=== PATIENT | female | born 1980 | race Caucasian/White ===

== ENCOUNTER → 2016-03-02 | Outpatient (CLI) | payer OTHER, MEDICAID ==
[~2016-03-02] MED LIST: ADDE10CA PO; ADDE30CA PO; AMBI10TA PO; ASPI1TAB PO; BUPIVACAINE HCL 0.25% 30 ML VIAL As Ordered ONE; DETR1TAB4 PO; EFFE150C PO; FERR325T3 PO; IBUP80TA PO; IMIT100T PO; ISOVUE-M 300 61% 15ML VIAL (Q9967) As Ordered ONE; LIDOCAINE 1% SDV INJ 30 ML VIAL As Ordered ONE; LYRI75CA PO; MIRT1TAB3 PO; PATA0.2S OP; PREV30CA11 PO; PROA1AER IN; REQU0.5T PO; SPIR1CAP INH; SYMB80INH INH; SYSTSOL5 OP; TAMO20TA4 PO; TRIAMCINOLONE ACETONIDE SUSP 40 MG/ML VIAL (J3301) As Ordered ONE; VITA2000 PO; WOMETAB9 PO; XANA0.5T PO; [UNRECOGNIZED DRUG - CODE] OP; diazePAM 5 MG TAB As Ordered ONE; oxyCODONE 5MG TAB As Ordered ONE
--- NOTE | 2016-03-02 17:20 | REP ---
FLUOROSCOPIC GUIDANCE: The images were reviewed with Dr. Decker. The patient has a history of back pain. The portable C-ARM was provided in the OR by Dr. Fuentes for fluoroscopic guidance. 2 intraoperative fluoroscopic spot films were obtained for needle placement verification for left SI joint injection. The films are on the PACS system and are available for review. 11 seconds of fluoroscopic time was utilized for this procedure. Reviewed by MINERVA Santiago 03/03/2016 09:05 AEdited and Signed by Maximiliano Decker MD 03/03/2016 03:17 P
--- NOTE | 2016-03-07 00:24 | ECWPNPC ---
PATIENT NAME: JEANNE HURLEY : 1980 GENDER: FEMALE VISIT DATE: 03/02/2016 DISCHARGE DATE: 03/02/16 1248 VISIT LOCKED DATE TIME: PHYSICIAN: ELVIA HARRIS RESOURCE: ELVIA HARRIS REASON FOR APPOINTMENT 1. HIP INJECTION HISTORY OF PRESENT ILLNESS HISTORY OF PRESENT ILLNESS: PAIN THE PATIENT DESCRIBES THE PAIN... FALL RISK SCREENING: SCREENING :NO FALLS IN THE PAST YEAR CURRENT MEDICATIONS TAKING XANAX 0.5 MG TABLET 1 TABLET ORALLY BID, NOTES: 03/02 7AM TAKING PROAIR HFA 108 (90 BASE) MCG/ACT AEROSOL SOLUTION 2 PUFFS NEEDED INHALATION QID PRN, NOTES: M TAKING SYMBICORT 80-4.5 MCG/ACT AEROSOL 2 PUFFS INHALATION TWICE A DAY, NOTES: 03/02 7AM TAKING ASPIR-81 81 MG TABLET DELAYED RELEASE 1 TABLET ORALLY ONCE A DAY, NOTES: 03/02 7AM TAKING FERROUS SULFATE 325 (65 FE) MG TABLET 1 TABLET ORALLY ONCE A DAY, NOTES: 2 DAYS AGO TAKING IBUPROFEN 800 MG TABLET 1 TABLET ORALLY THREE TIMES A DAY, NOTES: 03/02 7AM TAKING PREVACID 30 MG CAPSULE DELAYED RELEASE 1 CAPSULE ORALLY BID, NOTES: 2 DAYS AGO TAKING REQUIP 0.5 MG TABLET 1 TABLET 1 TO 3 HOURS BEFORE BEDTIME ORALLY ONCE A DAY, NOTES: 5 DAYS AGO TAKING IMITREX 100 MG TABLET 1 TABLET NEEDED ONE TIME ORALLY ONCE A DAY, NOTES: 2 WEEKS AGO TAKING SYSTANE ULTRA 0.4-0.3 % SOLUTION 1 DROP INTO AFFECTED EYE NEEDED OPHTHALMIC 24 TIME(S) A DAY, NOTES: NONE SINCE SEPTEMBER TAKING TAMOXIFEN CITRATE 20 MG TABLET 1 TABLET ORALLY ONCE A DAY, NOTES: 03/02 7A TAKING EFFEXOR XR 150 MG CAPSULE EXTENDED RELEASE 24 HOUR 1 CAPSULE WITH FOOD ORALLY ONCE A DAY, NOTES: 03/02 7A TAKING WOMENS DAILY FORMULA TABLET 1 TAB(S) ORALLY DAILY, NOTES: 03/02 7AM TAKING KETOTIFEN FUMARATE 0.025 % SOLUTION 1 DROP OPHTHALMIC BID, NOTES: NONE SINCE SEPTEMBER TAKING BONIVA 150 MG TABLET ORALLY MONTHLY, NOTES: 2 MONTHS AGO TAKING SINGULAIR 10 MG TABLET ORALLY ONCE DAILY, NOTES: 03/02 7AM TAKING VESICARE 5 MG TABLET ORALLY ONCE DAILY, NOTES: 03/02 7AM TAKING VITAMIN D 2000 UNIT TABLET ORALLY ONCE DAILY, NOTES: 1 WEEK AGP TAKING VENTOLIN HFA 18GM AEROSOL SOLUTION 2 PUFFS NEEDED INHALATION Q6HPRN, NOTES: 03/02 7AM TAKING HYDROXYCHLOROQUINE SULFATE , NOTES: 03/02 7AM TAKING HYDROXYZINE HCL 50 MG TABLET ORALLY Q6HPRN, NOTES: 03/02 7AM TAKING ALBUTEROL SULFATE (2.5 MG/3ML) 0.083% NEBULIZATION SOLUTION INHALATION Q6HPRN, NOTES: 2 DAYS TAKING ROPINIROLE HCL 2 MG TABLET ORALLY , NOTES: 03/01 7PM TAKING LYRICA 200 MG CAPSULE 1 CAPSULE ORALLY TWICE A DAY MDD2, NOTES: 03/02 7AM NOT-TAKING NICOTINE STEP 1 21 MG/24HR PATCH 24 HOUR TRANSDERMAL ONCE DAILY NOT-TAKING ABILIFY 2 MG TABLET ORALLY ONCE DAILY, NOTES: 10/16/15 0800 NOT-TAKING VALIUM 10 MG TABLET 1 ORALLY 1 TAB 1 HR PRE PROCEDURE MDD1, NOTES: HAS NOT HAD SINCE LAST PROCEDURE NOT-TAKING ADDERALL XR 10 MG CAPSULE EXTENDED RELEASE 24 HOUR 1 CAPSULE IN THE MORNING ORALLY ONCE A DAY NOT-TAKING ADDERALL XR 30 MG CAPSULE EXTENDED RELEASE 24 HOUR ORALLY NOT-TAKING CHOLECALCIFEROL 2000 UNIT CAPSULE ORALLY DAILY NOT-TAKING ZYRTEC ITCHY EYE 0.025 % SOLUTION 1 DROP INTO AFFECTED EYE OPHTHALMIC TWICE A DAY NOT-TAKING MIRTAZAPINE 15 MG TABLET 1 TABLET BEFORE BEDTIME IN THE EVENING ORALLY ONCE A DAY NOT-TAKING PATADAY 0.2 % SOLUTION 1 DROP INTO AFFECTED EYE OPHTHALMIC BID NOT-TAKING DETROL 2 MG TABLET 1 TABLET ORALLY TWICE A DAY NOT-TAKING AMBIEN 10 MG TABLET 1 TABLET AT BEDTIME NEEDED ORALLY ONCE A DAY, NOTES: STOPPED TAKING MEDICATION LIST REVIEWED AND RECONCILED WITH THE PATIENT PAST MEDICAL HISTORY FIBROMYALGIA SCOLIOSIS ARTHRITIS DEGENERATIVE DISC DISEASE ANEMIA THALSEMIA CARPAL TUNNEL ADHD ANXIETY DEPRESSION INSOMNIA OVERACTIVE BLADDER BREAST CA CERVICAL CA CARDIAC DISEASE RESTLESS LEG COPD ASTHMA ALLERGIES WELLBUTRIN: HIVES: ALLERGY CARVEDILOL: CONFUSION: ALLERGY SOCIAL HISTORY TOBACCO USE ARE YOU A:NONSMOKER LEARNING BARRIERS / SPECIAL NEEDS ORIENTED TO PLAN OF CARE: PATIENT, PAIN MANAGEMENT PATIENT, ORIENTED TO PLAN OF CARE: PATIENT, PAIN MANAGEMENT PATIENT. NEW PATIENT PAIN DIARY TODAY'S VISITNOTES FROM 0-10, WHAT LEVEL IS YOUR PAIN TODAY?0 PAIN CLINIC PFS, CLERGY, PUBLIC HEALTH REFERRALS PFS REFERRAL NEEDED?NO CLERGY REFERRAL NEEDED?NO PUBLIC HEALTH REFERRAL NEEDED?NO WAS THE PROVIDER NOTIFIED OF ANY PERTINENT INFO?NO PFS REFERRAL NEEDED?NO CLERGY REFERRAL NEEDED?NO PUBLIC HEALTH REFERRAL NEEDED?NO WAS THE PROVIDER NOTIFIED OF ANY PERTINENT INFO?NO REVIEW OF SYSTEMS CONSTITUTIONAL: ANY CHANGE IN YOUR MEDICAL CONDITION? NO . CHILLS NO . FEVER NO . INFECTION: DO YOU HAVE NEW INFECTIONS? NO . DO YOU HAVE HISTORY OF MRSA? NO . MUSCULOSKELETAL: ANY NEW PATTERNS OF PAIN OR NUMBNESS? NO . GASTROENTEROLOGY: ANY NEW CHANGE IN BOWEL CONTROL? NO . GENITOURINARY: ANY NEW CHANGE IN BLADDER CONTROL? NO . IS THERE A CHANCE YOU COULD BE ? NO . HEMATOLOGY/LYMPH: DO YOU TAKE ANY BLOOD THINNERS? (FOR EXAMPLE- COUMADIN, PLAVIX, AGGRENOX, PLATEL, PRADAXA, OR XARELTO) NO . WHEN WAS YOUR LAST DOSE? DATE: TIME: . NEUROLOGY: HAVE YOU FALLEN IN THE PAST 6 MONTHS? YES, PT STATES THAT SHE FELL AT HOME, OUTSIDE, SLIPPED ON ICE, NO REPORT TO ED, NO INJURY NOTED . ANY NEW EXTREMITY NUMBNESS OR WEAKNESS? NO . CARDIOLOGY: DO YOU HAVE A PACEMAKER OR DEFIBRILLATOR? NO . RESPIRATORY: HAVE YOU BEEN SICK IN THE PAST WEEK? NO . FEVER NO . FLU LIKE SYMPTOMS? NO . COUGH NO . INTEGUMENTARY: DO YOU HAVE ANY RASHES OR OPEN SORES? NO . ALLERGIC/IMMUNO: ARE YOU ALLERGIC TO SHELLFISH OR IV DYE? NO . ANY NEW ALLERGIES? NO . PSYCHIATRIC: DO YOU HAVE THOUGHTS OF HURTING YOURSELF OR SOMEONE ELSE? NO . ARE YOU ABUSED, NEGLECTED, OR IN AN UNSAFE ENVIRONMENT? NO . ENDOCRINOLOGY: ARE YOU DIABETIC? NO . OTHER: DO YOU NEED ANY PRESCRIPTIONS? NO . IF YES, PLEASE LIST: ____ . ANY NEW PROBLEMS WITH YOUR MEDICATIONS? NO . WHEN DID YOU LAST EAT? 12/30 11PM . WHEN DID YOU LAST DRINK? 12/31 7AM . WHAT DID YOU LAST DRINK? WATER . NAME OF PERSON DRIVING YOU HOME? BONIFACIO KNOTT . DO YOU HAVE ANY OTHER QUESTIONS OR CONCERNS PT STATES THAT SHE IS A CURRENT SMOKER AND ATTEMPTING TO QUIT, REFUSES ANY SMOKING CESSATION COUSELING AT THIS TIME. PT STATES THAT SHE HAD FLU SHOT IN NOVEMBER. . REVIEWED BY: PROVIDER: . VITAL SIGNS WT 199 LBS, HT 68 IN, BMI 30.25 INDEX, BP 131/58 MM HG, HR 103 /MIN, RR 16 /MIN, TEMP 96.0 F, OXYGEN SAT % 96, SAFE IN ENV? (Y/N) Y, NA INITIALS TL 1045, REVIEWED BY: KEVIN. ASSESSMENTS SACROILIITIS, NOT ELSEWHERE CLASSIFIED - M46.1 (PRIMARY) PROCEDURES PN SI PRE PROCEDURE DIAGNOSIS SACROILIITIS, SACROILIAC JOINT DYSFUNCTION POST PROCEDURE DIAGNOSIS SACROILIITIS, SACROILIAC JOINT DYSFUNCTION PROCEDURE LEFT SACROILIAC JOINT BLOCK SURGEON DR. ELVIA HARRIS CLASSIFICATION OFFICER NONE ANESTHESIA LOCAL PRE PROCEDURE NOTE PATIENT WITH HISTORY OF CHRONIC LOW BACK PAIN. I EVALUATED THE PATIENT AND REVIEWED THE CHART. I WENT OVER THE RISKS, ALTERNATIVES, AND BENEFITS ASSOCIATED WITH THIS PROCEDURE. THE PATIENT WOULD LIKE TO PROCEED AND GAVE CONSENT TO PERFORM THE PROCEDURE. THE PATIENT DENIES UNEXPLAINABLE WEIGHT LOSS, FEVER, CHILLS, OR NEW CHANGES IN URINARY OR BOWEL CONTROL DESCRIPTION OF PROCEDURE THE PATIENT WAS BROUGHT TO THE PROCEDURE ROOM AND PLACED IN THE PRONE POSITION. THE LUMBOSACRAL AREA WAS CLEANED WITH CHLORAPREP SOLUTION AND DRAPED ASEPTICALLY. THE PROCEDURE WAS DONE UNDER STERILE CONDITIONS. I CHECKED LATERALITY AND THE LEVEL WHERE THE PROCEDURE WAS GOING TO BE PERFORMED WITH THE PATIENT AND THE SUPPORTING STAFF AT THE MOMENT OF THE TIME OUT IN THE PROCEDURE ROOM. UNDER FLUOROSCOPIC GUIDANCE, TARGET POINT WAS SELECTED AT THE LOWER BORDER OF THE LEFT SACROILIAC JOINT. TARGET POINT WAS SELECTED AFTER MEDIAL ROTATION AND TILT OF THE MAGNIFIER OF THE C-ARM. LIDOCAINE WAS USED TO NUMB THE SKIN AND SUBCUTANEOUS TISSUE BELOW IT. A SPINAL NEEDLE, 22-GAUGE, WAS ADVANCED UNDER FLUOROSCOPIC GUIDANCE AND FOLLOWING PATIENT FEEDBACK UNTIL THE TARGET AREA WAS TOUCHED. THE POSITION OF THE NEEDLE WAS VERIFIED WITH AP AND LATERAL VIEWS. AFTER PROPER POSITION OF THE NEEDLE WAS ACHIEVED, ISOVUE M DYE 30%, 0.25 ML, WAS INJECTED SHOWING SPREAD OF THE DYE. THEN, A SOLUTION OF 20 MG OF KENALOG WAS INJECTED IN RIGHT JOINT WITH 3 ML OF BUPIVACAINE 0.125%. THERE WAS NO EVIDENCE OF BLOOD, PARESTHESIA OR CEREBROSPINAL FLUID DURING THE PROCEDURE. THE PATIENT WAS SENT TO THE RECOVERY ROOM. THE PATIENT WAS MOVING THE EXTREMITIES AND DOING WELL. THERE WAS NO COMPLICATION DURING THE PROCEDURE. FLUOROSCOPY TIME WAS 11 SECONDS POST PROCEDURE NOTE THE PATIENT WILL BE SEEN IN A FOLLOW UP IN THE NEXT FEW WEEKS. INSTRUCTIONS WERE GIVEN, QUESTIONS WERE ANSWERED, AND THE PATIENT EXPRESSED UNDERSTANDING AND AGREED WITH THE PLAN. I, RELL FAGAN, DOCUMENTED THE ABOVE INFORMATION ACTING A SCRIBE FOR DR. HARRIS. I, DR. HARRIS, HAVE REVIEWED THE ABOVE DOCUMENT, SCRIBED BY RELL FAGAN, AND I VERIFY THAT IT IS [facility] FLUORO GUIDANCE (PAIN)[id number] PROCEDURE CODES 69512 INJECT SACROILIAC JOINT 6045F RADXPS IN END [id number] PXD FOLLOW UP 3 WEEKS ELECTRONICALLY SIGNED BY ELVIA HARRIS MD ON 03/06/2016 AT 11:39 PM EST DISCLAIMER : THIS IS A VISIT SUMMARY EXTRACTED FROM THE [employer] CHART. IT IS NOT A COPY OF THE [employer] PROGRESS NOTE. MTDD
== END ==
LOC: M PAIN 10:50
PROVIDERS: ATTEND Anesthesiology
DX: M46.1 Sacroiliitis, not elsewhere classified (principal); M54.5 Low back pain; Z79.82 Long term (current) use of aspirin; Z79.899 Other long term (current) drug therapy; Z88.8 Allergy status to other drugs, medicaments and biological substances

== ENCOUNTER → 2016-03-22 | Outpatient (CLI) | payer OTHER, MEDICAID ==
[~2016-03-22] MED LIST changes: -BUPIVACAINE HCL 0.25% 30 ML VIAL As Ordered ONE; -ISOVUE-M 300 61% 15ML VIAL (Q9967) As Ordered ONE; -LIDOCAINE 1% SDV INJ 30 ML VIAL As Ordered ONE; +SYSTSOL11 OP; -SYSTSOL5 OP; -TRIAMCINOLONE ACETONIDE SUSP 40 MG/ML VIAL (J3301) As Ordered ONE; -diazePAM 5 MG TAB As Ordered ONE; -oxyCODONE 5MG TAB As Ordered ONE
--- NOTE | 2016-03-25 00:19 | ECWPNPC ---
PATIENT NAME: JEANNE HURLEY : 1980 GENDER: FEMALE VISIT DATE: 03/22/2016 DISCHARGE DATE: 03/22/16 1604 VISIT LOCKED DATE TIME: PHYSICIAN: YENIFER COLIN RESOURCE: YENIFER COLIN REASON FOR APPOINTMENT 1. BACK/HIPS HISTORY OF PRESENT ILLNESS HISTORY OF PRESENT ILLNESS: HERE FOR POST PROC. F/U.HAD LEFT SIJ ON 03-02-16.REPORTS ONLY 2 DAY IMPROVEMENT IN PAIN THEN PAIN HAS RETURNED TO BASELINE.RATING PAIN VAS 6/10.PAIN IS WORSE IN MID TO LOW BACK.PAIN IS AGGREVATED BY PROLONGED SITTING OR STANDING. PAIN THE PATIENT DESCRIBES THE PAIN... FALL RISK SCREENING: SCREENING :NO FALLS IN THE PAST YEAR CURRENT MEDICATIONS TAKING XANAX 0.5 MG TABLET 1 TABLET ORALLY BID, NOTES: 03/02 7AM TAKING PROAIR HFA 108 (90 BASE) MCG/ACT AEROSOL SOLUTION 2 PUFFS NEEDED INHALATION QID PRN, NOTES: 7AM TAKING SYMBICORT 80-4.5 MCG/ACT AEROSOL 2 PUFFS INHALATION TWICE A DAY, NOTES: 03/02 7AM TAKING ASPIR-81 81 MG TABLET DELAYED RELEASE 1 TABLET ORALLY ONCE A DAY, NOTES: 03/02 7AM TAKING FERROUS SULFATE 325 (65 FE) MG TABLET 1 TABLET ORALLY ONCE A DAY, NOTES: 2 DAYS AGO TAKING IBUPROFEN 800 MG TABLET 1 TABLET ORALLY THREE TIMES A DAY, NOTES: 03/02 7AM TAKING PREVACID 30 MG CAPSULE DELAYED RELEASE 1 CAPSULE ORALLY BID, NOTES: 2 DAYS AGO TAKING REQUIP 3 MG TABLET 1 TABLET 1 TO 3 HOURS BEFORE BEDTIME ORALLY BEFORE BEDTIME, NOTES: 5 DAYS AGO TAKING IMITREX 100 MG TABLET 1 TABLET NEEDED ONE TIME ORALLY ONCE A DAY, NOTES: 2 WEEKS AGO TAKING SYSTANE ULTRA 0.4-0.3 % SOLUTION 1 DROP INTO AFFECTED EYE NEEDED OPHTHALMIC 24 TIME(S) A DAY, NOTES: NONE SINCE SEPTEMBER TAKING TAMOXIFEN CITRATE 20 MG TABLET 1 TABLET ORALLY ONCE A DAY, NOTES: 03/02 7AM TAKING EFFEXOR XR 150 MG CAPSULE EXTENDED RELEASE 24 HOUR 1 CAPSULE WITH FOOD ORALLY ONCE A DAY, NOTES: 03/02 7AM TAKING WOMENS DAILY FORMULA TABLET 1 TAB(S) ORALLY DAILY, NOTES: 03/02 7AM TAKING KETOTIFEN FUMARATE 0.025 % SOLUTION 1 DROP OPHTHALMIC BID, NOTES: NONE SINCE SEPTEMBER TAKING BONIVA 150 MG TABLET ORALLY MONTHLY, NOTES: 2 MONTHS AGO TAKING SINGULAIR 10 MG TABLET ORALLY ONCE DAILY, NOTES: 03/02 7AM TAKING VESICARE 10 MG TABLET 1 TABLET ORALLY ONCE DAILY, NOTES: 03/02 7AM TAKING VITAMIN D 2000 UNIT TABLET ORALLY ONCE DAILY, NOTES: 1 WEEK AGP TAKING VENTOLIN HFA 18GM AEROSOL SOLUTION 2 PUFFS NEEDED INHALATION Q6HPRN, NOTES: 03/02 7AM TAKING HYDROXYZINE HCL 50 MG TABLET ORALLY Q6HPRN, NOTES: 03/02 7AM TAKING ALBUTEROL SULFATE (2.5 MG/3ML) 0.083% NEBULIZATION SOLUTION INHALATION Q6HPRN, NOTES: 2 DAYS TAKING LYRICA 200 MG CAPSULE 1 CAPSULE ORALLY TWICE A DAY MDD2, NOTES: 03/02 7AM TAKING EFFEXOR XR 75 MG CAPSULE EXTENDED RELEASE 24 HOUR 1 CAPSULE WITH FOOD ORALLY ONCE A DAY TAKING TOPAMAX 50 MG TABLET 1 1/2 TABLET ORALLY BEFORE BEDTIME NOT-TAKING NICOTINE STEP 1 21 MG/24HR PATCH 24 HOUR TRANSDERMAL ONCE DAILY NOT-TAKING ABILIFY 2 MG TABLET ORALLY ONCE DAILY, NOTES: 10/16/15 0800 NOT-TAKING VALIUM 10 MG TABLET 1 ORALLY 1 TAB 1 HR PRE PROCEDURE MDD1, NOTES: HAS NOT HAD SINCE LAST PROCEDURE NOT-TAKING ADDERALL XR 10 MG CAPSULE EXTENDED RELEASE 24 HOUR 1 CAPSULE IN THE MORNING ORALLY ONCE A DAY NOT-TAKING ADDERALL XR 30 MG CAPSULE EXTENDED RELEASE 24 HOUR ORALLY NOT-TAKING CHOLECALCIFEROL 2000 UNIT CAPSULE ORALLY DAILY NOT-TAKING ZYRTEC ITCHY EYE 0.025 % SOLUTION 1 DROP INTO AFFECTED EYE OPHTHALMIC TWICE A DAY NOT-TAKING MIRTAZAPINE 15 MG TABLET 1 TABLET BEFORE BEDTIME IN THE EVENING ORALLY ONCE A DAY NOT-TAKING PATADAY 0.2 % SOLUTION 1 DROP INTO AFFECTED EYE OPHTHALMIC BID NOT-TAKING DETROL 2 MG TABLET 1 TABLET ORALLY TWICE A DAY NOT-TAKING AMBIEN 10 MG TABLET 1 TABLET AT BEDTIME NEEDED ORALLY ONCE A DAY, NOTES: STOPPED TAKING DISCONTINUED HYDROXYCHLOROQUINE SULFATE , NOTES: 03/02 7AM DISCONTINUED ROPINIROLE HCL 2 MG TABLET ORALLY , NOTES: 03/01 7PM MEDICATION LIST REVIEWED AND RECONCILED WITH THE PATIENT PAST MEDICAL HISTORY FIBROMYALGIA SCOLIOSIS ARTHRITIS DEGENERATIVE DISC DISEASE ANEMIA THALSEMIA CARPAL TUNNEL ADHD ANXIETY DEPRESSION INSOMNIA OVERACTIVE BLADDER BREAST CA CERVICAL CA CARDIAC DISEASE RESTLESS LEG COPD ASTHMA ALLERGIES WELLBUTRIN: HIVES: ALLERGY CARVEDILOL: CONFUSION: ALLERGY SOCIAL HISTORY GENERAL: TOBACCO USE ARE YOU A:CURRENT SMOKER PATIENT COUNSELED ON THE DANGERS OF TOBACCO USE AND URGED TO QUIT:NULL COUNCELED ON THE IMPORTANCE OF QUITING. SHE HAS TRIED IN THE PAST BUT UNABLE TO TAKE WELBUTRIN OR GUM AND PATCHES DIDN'T WORK. HOW MANY CIGARETTES A DAY DO YOU SMOKE?6-10 HOW SOON AFTER YOU WAKE UP DO YOU SMOKE YOUR FIRST CIGARETTE?6-30 MIN HOW OFTEN DO YOU SMOKE CIGARETTES?EVERY DAY ARE YOU INTERESTED IN QUITTING?NOT READY TO QUIT LEARNING BARRIERS / SPECIAL NEEDS ORIENTED TO PLAN OF CARE: PATIENT, PAIN MANAGEMENT PATIENT, ORIENTED TO PLAN OF CARE: PATIENT, PAIN MANAGEMENT PATIENT. NEW PATIENT PAIN DIARY TODAY'S VISITNOTES FROM 0-10, WHAT LEVEL IS YOUR PAIN TODAY?0 PAIN CLINIC PFS, CLERGY, PUBLIC HEALTH REFERRALS PFS REFERRAL NEEDED?NO CLERGY REFERRAL NEEDED?NO PUBLIC HEALTH REFERRAL NEEDED?NO WAS THE PROVIDER NOTIFIED OF ANY PERTINENT INFO?NO PFS REFERRAL NEEDED?NO CLERGY REFERRAL NEEDED?NO PUBLIC HEALTH REFERRAL NEEDED?NO WAS THE PROVIDER NOTIFIED OF ANY PERTINENT INFO?NO REVIEW OF SYSTEMS CONSTITUTIONAL: ANY CHANGE IN YOUR MEDICAL CONDITION? NO . CHILLS NO . FEVER NO . INFECTION: DO YOU HAVE NEW INFECTIONS? NO . DO YOU HAVE HISTORY OF MRSA? NO . MUSCULOSKELETAL: ANY NEW PATTERNS OF PAIN OR NUMBNESS? NO . GASTROENTEROLOGY: ANY NEW CHANGE IN BOWEL CONTROL? NO . GENITOURINARY: ANY NEW CHANGE IN BLADDER CONTROL? NO . IS THERE A CHANCE YOU COULD BE ? NO . HEMATOLOGY/LYMPH: DO YOU TAKE ANY BLOOD THINNERS? (FOR EXAMPLE- COUMADIN, PLAVIX, AGGRENOX, PLATEL, PRADAXA, OR XARELTO) NO . WHEN WAS YOUR LAST DOSE? DATE: TIME: . NEUROLOGY: HAVE YOU FALLEN IN THE PAST 6 MONTHS? YES, SEVERAL TIMES, NO INJURIES . ANY NEW EXTREMITY NUMBNESS OR WEAKNESS? NO . CARDIOLOGY: DO YOU HAVE A PACEMAKER OR DEFIBRILLATOR? NO . RESPIRATORY: HAVE YOU BEEN SICK IN THE PAST WEEK? NO . FEVER NO . FLU LIKE SYMPTOMS? NO . COUGH NO . INTEGUMENTARY: DO YOU HAVE ANY RASHES OR OPEN SORES? NO . ALLERGIC/IMMUNO: ARE YOU ALLERGIC TO SHELLFISH OR IV DYE? NO . ANY NEW ALLERGIES? NO . PSYCHIATRIC: DO YOU HAVE THOUGHTS OF HURTING YOURSELF OR SOMEONE ELSE? NO . ARE YOU ABUSED, NEGLECTED, OR IN AN UNSAFE ENVIRONMENT? NO . ENDOCRINOLOGY: ARE YOU DIABETIC? NO . OTHER: DO YOU NEED ANY PRESCRIPTIONS? NO . IF YES, PLEASE LIST: ____ . ANY NEW PROBLEMS WITH YOUR MEDICATIONS? NO . WHEN DID YOU LAST EAT? ____ . WHEN DID YOU LAST DRINK? ____ . WHAT DID YOU LAST DRINK? ____ . NAME OF PERSON DRIVING YOU HOME? ____ . DO YOU HAVE ANY OTHER QUESTIONS OR CONCERNS NO . REVIEWED BY: PROVIDER: YENIFER PLASCENCIA . VITAL SIGNS WT 200 LBS, HT 68 IN, BMI 30.41 INDEX, BP 136/95 MM HG, HR 122 /MIN, RR 16 /MIN, TEMP 97.7 F, OXYGEN SAT % 99%, REVIEWED BY: VICTORINO OF HR 92. EXAMINATION LUMBAR SPINE/LOWER BACK: PALPATION:SI JOINT TENDERNESS BILATERALLY.. MOTOR SYSTEM:5/5 BLE. GENERAL EXAMINATION: LUNGS:LUNG SOUNDS ARE CLEAR. HEART:HEART RATE REGULAR. ASSESSMENTS MYALGIA - M79.1 (PRIMARY) CHRONIC PRESCRIPTION OPIATE USE - Z79.891 TREATMENT MYALGIA CONTINUE LYRICA CAPSULE, 200 MG, 1 CAPSULE, ORALLY, TWICE A DAY MDD2, NOTES: 03/02 7AM START NORCO TABLET, 5-325 MG, 1 TABLET NEEDED, ORALLY, EVERY 8H PRN MDD2, 30 DAY(S), 30, REFILLS 0 CAUDAL/LUMBAR EPIDURAL NOTES: ISTOP REGISTRY REVIEWED AND DEMNOSTRATES COMPLLIANCE. BRINGS IN MEDICATIONS WHICH IS APPROPRIATE FOR WHAT WAS DISPENSED. RECENT URINE TOXICOLOGY REVIEWED. NO UNAUTHORIZED MEDICATIONS. NO ILLICIT SUBSTANCES AND PRESCRIBED MEDICATIONS WERE PRESENT. , OPTION FOR EPIDURAL INJECTIONS WERE DISCUSSED WITH THE PATIENT. FDA CONCERNS AND WARNING WERE REVIEWED INCLUDING THE RISK OF BLEEDING, RISK OF INFECTION, RISK OF INCREASED PAIN OR NEURALGIA, AND RISK OF PARALYSIS. PATIENT'S QUESTIONS WERE ANSWERED AND HE/SHE WISHES TO MOVE FORWARD WITH EPIDURAL INJECTION. PREVENTIVE MEDICINE PAIN CLINIC TEACHING: PROCEDURE TEACHING PATIENT DECLINED PRINTED INFORMATION ON THE EPIDURAL STATING SHE WAS FAMILIAR WITH THE PROCEDURE.. MEDITATION PATIENT DECLINED PRINTED INFORMATION ON HYDROCODONE. PROCEDURE CODES FA211 ESTABILISHED PATIENT [facility] CHARGE FOLLOW UP 2 WEEKS POST (REASON: GRACIELA STATON) ELECTRONICALLY SIGNED BY THAIS FORD ON 03/24/2016 AT 01:28 PM EST DISCLAIMER : THIS IS A VISIT SUMMARY EXTRACTED FROM THE [employer] CHART. IT IS NOT A COPY OF THE [employer] PROGRESS NOTE. [facility]
== END ==
LOC: M PAIN 14:40
PROVIDERS: ATTEND Nurse Practitioner Family
DX: Z09 Encounter for follow-up examination after completed treatment for conditions other than malignant neoplasm (principal); M79.7 Fibromyalgia; M41.9 Scoliosis, unspecified; M19.90 Unspecified osteoarthritis, unspecified site; M51.9 Unspecified thoracic, thoracolumbar and lumbosacral intervertebral disc disorder; I51.9 Heart disease, unspecified; G25.81 Restless legs syndrome; J44.9 Chronic obstructive pulmonary disease, unspecified; D56.9 Thalassemia, unspecified; F90.9 Attention-deficit hyperactivity disorder, unspecified type; F41.9 Anxiety disorder, unspecified; F32.9 Major depressive disorder, single episode, unspecified; G47.30 Sleep apnea, unspecified; N32.81 Overactive bladder; F17.200 Nicotine dependence, unspecified, uncomplicated; Z88.8 Allergy status to other drugs, medicaments and biological substances; Z79.82 Long term (current) use of aspirin; Z79.1 Long term (current) use of non-steroidal anti-inflammatories (NSAID); Z79.891 Long term (current) use of opiate analgesic; Z79.899 Other long term (current) drug therapy; Z85.3 Personal history of malignant neoplasm of breast; Z85.41 Personal history of malignant neoplasm of cervix uteri

== ENCOUNTER → 2016-04-27 | Outpatient (CLI) | payer OTHER, MEDICAID ==
--- NOTE | 2016-05-05 00:58 | ECWPNPC ---
PATIENT NAME: JEANNE HURLEY : 1980 GENDER: FEMALE VISIT DATE: 04/27/2016 DISCHARGE DATE: 04/27/16 1228 VISIT LOCKED DATE TIME: PHYSICIAN: ELVIA HARRIS RESOURCE: ELVIA HARRIS REASON FOR APPOINTMENT 1. BACK PAIN HISTORY OF PRESENT ILLNESS HISTORY OF PRESENT ILLNESS: PAIN THE PATIENT DESCRIBES THE PAIN... 36 YEAR OLD FEMALE PATIENT WITH HISTORY OF CHRONIC BACK PAIN. PATIENT DESCRIBES THE PAIN ACHING, SHARP, STABBING, TENDER, THROBBING, SORE, SHOOTING, AND HAVING IT ALL THE TIME WITH A PAIN SCORE OF 5/10. PATIENT WAS HERE FOR A LUMBAR EPIDURAL BUT THE PATIENT IS NOT FEELING PAIN THAT CO INSIDES WITH A LUMBAR EPIDURAL. CURRENTLY THE PATIENT IS USING NORCO AND LYRICA TO AID IN PAIN RELIEF AND THE PATIENT STATES THAT IT DOES AID IN PAIN RELIEF. ANY TYPE OF ACTIVITY INCLUDING WALKING, STANDING, SITTING, INCREASES THE PAIN IN HER LOWER BACK. AT THIS TIME MEDICATION MANAGEMENT AND INTERVENTIONS HELP TO RELIEVE THE PAIN. PATIENT DENIES UNEXPLAINABLE WEIGHT LOSS, FEVER, CHILLS, NEW CHANGES ON HER URINARY OR BOWEL CONTROL. FALL RISK SCREENING: SCREENING :NO FALLS IN THE PAST YEAR CURRENT MEDICATIONS TAKING XANAX 0.5 MG TABLET 1 TABLET ORALLY BID, NOTES: 04-23-16 TAKING PROAIR HFA 108 (90 BASE) MCG/ACT AEROSOL SOLUTION 2 PUFFS NEEDED INHALATION QID PRN, NOTES: 04-26-16 TAKING SYMBICORT 80-4.5 MCG/ACT AEROSOL 2 PUFFS INHALATION TWICE A DAY, NOTES: 04-27-16 0800 TAKING ASPIR-81 81 MG TABLET DELAYED RELEASE 1 TABLET ORALLY ONCE A DAY, NOTES: 04-27-16 050 TAKING FERROUS SULFATE 325 (65 FE) MG TABLET 1 TABLET ORALLY ONCE A DAY, NOTES: 04-27-16499 TAKING IBUPROFEN 800 MG TABLET 1 TABLET ORALLY THREE TIMES A DAY, NOTES: 04-27-16499 TAKING PREVACID 30 MG CAPSULE DELAYED RELEASE 1 CAPSULE ORALLY BID, NOTES: 04-27-16499 TAKING REQUIP 3 MG TABLET 1 TABLET 1 TO 3 HOURS BEFORE BEDTIME ORALLY BEFORE BEDTIME, NOTES: 04-16-16 2100 TAKING IMITREX 100 MG TABLET 1 TABLET NEEDED ONE TIME ORALLY ONCE A DAY, NOTES: 2 WEEKS AGO TAKING SYSTANE ULTRA 0.4-0.3 % SOLUTION 1 DROP INTO AFFECTED EYE NEEDED OPHTHALMIC 24 TIME(S) A DAY, NOTES: NONE SINCE SEPTEMBER TAKING TAMOXIFEN CITRATE 20 MG TABLET 1 TABLET ORALLY ONCE A DAY, NOTES: 04-27-16499 TAKING EFFEXOR XR 150 MG CAPSULE EXTENDED RELEASE 24 HOUR 1 CAPSULE WITH FOOD ORALLY ONCE A DAY, NOTES: 04-27-16499 TAKING WOMENS DAILY FORMULA TABLET 1 TAB(S) ORALLY DAILY, NOTES: 04-27-16499 TAKING KETOTIFEN FUMARATE 0.025 % SOLUTION 1 DROP OPHTHALMIC BID, NOTES: NONE SINCE SEPTEMBER TAKING BONIVA 150 MG TABLET ORALLY MONTHLY, NOTES: 2 MONTHS AGO TAKING SINGULAIR 10 MG TABLET ORALLY ONCE DAILY, NOTES: 04-27-16499 TAKING VESICARE 10 MG TABLET 1 TABLET ORALLY ONCE DAILY, NOTES: 04-16-162099 TAKING VITAMIN D 2000 UNIT TABLET ORALLY ONCE DAILY, NOTES: 04-27-16499 TAKING VENTOLIN HFA 18GM AEROSOL SOLUTION 2 PUFFS NEEDED INHALATION Q6HPRN, NOTES: 04-26-16 08 TAKING HYDROXYZINE HCL 50 MG TABLET ORALLY Q6HPRN, NOTES: 04-26-17799 TAKING ALBUTEROL SULFATE (2.5 MG/3ML) 0.083% NEBULIZATION SOLUTION INHALATION Q6HPRN, NOTES: WEEK TAKING EFFEXOR XR 75 MG CAPSULE EXTENDED RELEASE 24 HOUR 1 CAPSULE WITH FOOD ORALLY ONCE A DAY, NOTES: 04-27-16499 TAKING TOPAMAX 50 MG TABLET 1 1/2 TABLET ORALLY BEFORE BEDTIME, NOTES: 04-16-162099 TAKING LYRICA 200 MG CAPSULE 1 CAPSULE ORALLY TWICE A DAY MDD2, NOTES: 04-27-16499 TAKING NORCO 5-325 MG TABLET 1 TABLET NEEDED ORALLY EVERY 8H PRN MDD2, NOTES: NONE RECENTLY DISCONTINUED NICOTINE STEP 1 21 MG/24HR PATCH 24 HOUR TRANSDERMAL ONCE DAILY DISCONTINUED ABILIFY 2 MG TABLET ORALLY ONCE DAILY, NOTES: 10/16/15 0800 DISCONTINUED VALIUM 10 MG TABLET 1 ORALLY 1 TAB 1 HR PRE PROCEDURE MDD1, NOTES: HAS NOT HAD SINCE LAST PROCEDURE DISCONTINUED ADDERALL XR 10 MG CAPSULE EXTENDED RELEASE 24 HOUR 1 CAPSULE IN THE MORNING ORALLY ONCE A DAY DISCONTINUED ADDERALL XR 30 MG CAPSULE EXTENDED RELEASE 24 HOUR ORALLY DISCONTINUED CHOLECALCIFEROL 2000 UNIT CAPSULE ORALLY DAILY DISCONTINUED ZYRTEC ITCHY EYE 0.025 % SOLUTION 1 DROP INTO AFFECTED EYE OPHTHALMIC TWICE A DAY DISCONTINUED MIRTAZAPINE 15 MG TABLET 1 TABLET BEFORE BEDTIME IN THE EVENING ORALLY ONCE A DAY DISCONTINUED PATADAY 0.2 % SOLUTION 1 DROP INTO AFFECTED EYE OPHTHALMIC BID DISCONTINUED DETROL 2 MG TABLET 1 TABLET ORALLY TWICE A DAY DISCONTINUED AMBIEN 10 MG TABLET 1 TABLET AT BEDTIME NEEDED ORALLY ONCE A DAY, NOTES: STOPPED TAKING MEDICATION LIST REVIEWED AND RECONCILED WITH THE PATIENT PAST MEDICAL HISTORY FIBROMYALGIA SCOLIOSIS ARTHRITIS DEGENERATIVE DISC DISEASE ANEMIA THALSEMIA CARPAL TUNNEL ADHD ANXIETY DEPRESSION INSOMNIA OVERACTIVE BLADDER BREAST CA CERVICAL CA CARDIAC DISEASE RESTLESS LEG COPD ASTHMA ALLERGIES WELLBUTRIN: HIVES: ALLERGY CARVEDILOL: CONFUSION: ALLERGY SURGICAL HISTORY HYSTERECTOMY APPENDECTOMY TUMOR REMOVED LEFT ARM LEFT HIP CHOLECYSTECTOMY BREAST BIOPSY (4) LUMPECTOMY RIGHT BREAST INFUSAPORT REMOVAL OF INFUSAPORT TUBAL LIGATION LEEP CADIAC CATHERIZATION FAMILY HISTORY NO FAMILY HISTORY DOCUMENTED. SOCIAL HISTORY GENERAL: TOBACCO USE ARE YOU A:NONSMOKER LEARNING BARRIERS / SPECIAL NEEDS ORIENTED TO PLAN OF CARE: PATIENT, PAIN MANAGEMENT PATIENT, ORIENTED TO PLAN OF CARE: PATIENT, PAIN MANAGEMENT PATIENT. NEW PATIENT PAIN DIARY TODAY'S VISITNOTES FROM 0-10, WHAT LEVEL IS YOUR PAIN TODAY?0 PAIN CLINIC PFS, CLERGY, PUBLIC HEALTH REFERRALS PFS REFERRAL NEEDED?NO CLERGY REFERRAL NEEDED?NO PUBLIC HEALTH REFERRAL NEEDED?NO WAS THE PROVIDER NOTIFIED OF ANY PERTINENT INFO?NO PFS REFERRAL NEEDED?NO CLERGY REFERRAL NEEDED?NO PUBLIC HEALTH REFERRAL NEEDED?NO WAS THE PROVIDER NOTIFIED OF ANY PERTINENT INFO?NO HOSPITALIZATION/MAJOR DIAGNOSTIC PROCEDURE NO HOSPITALIZATION HISTORY. REVIEW OF SYSTEMS CONSTITUTIONAL: ANY CHANGE IN YOUR MEDICAL CONDITION? NO . CHILLS NO . FEVER NO . INFECTION: DO YOU HAVE NEW INFECTIONS? NO . DO YOU HAVE HISTORY OF MRSA? NO . MUSCULOSKELETAL: ANY NEW PATTERNS OF PAIN OR NUMBNESS? NO . GASTROENTEROLOGY: ANY NEW CHANGE IN BOWEL CONTROL? NO . GENITOURINARY: ANY NEW CHANGE IN BLADDER CONTROL? NO . IS THERE A CHANCE YOU COULD BE ? NO . HEMATOLOGY/LYMPH: DO YOU TAKE ANY BLOOD THINNERS? (FOR EXAMPLE- COUMADIN, PLAVIX, AGGRENOX, PLATEL, PRADAXA, OR XARELTO) NO . WHEN WAS YOUR LAST DOSE? DATE: TIME: . NEUROLOGY: HAVE YOU FALLEN IN THE PAST 6 MONTHS? YES . ANY NEW EXTREMITY NUMBNESS OR WEAKNESS? NO . CARDIOLOGY: DO YOU HAVE A PACEMAKER OR DEFIBRILLATOR? NO . RESPIRATORY: HAVE YOU BEEN SICK IN THE PAST WEEK? NO . FEVER NO . FLU LIKE SYMPTOMS? NO . COUGH NO . INTEGUMENTARY: DO YOU HAVE ANY RASHES OR OPEN SORES? NO . ALLERGIC/IMMUNO: ARE YOU ALLERGIC TO SHELLFISH OR IV DYE? NO . ANY NEW ALLERGIES? NO . PSYCHIATRIC: DO YOU HAVE THOUGHTS OF HURTING YOURSELF OR SOMEONE ELSE? NO . ARE YOU ABUSED, NEGLECTED, OR IN AN UNSAFE ENVIRONMENT? NO . ENDOCRINOLOGY: ARE YOU DIABETIC? NO . OTHER: DO YOU NEED ANY PRESCRIPTIONS? NO . IF YES, PLEASE LIST: ____ . ANY NEW PROBLEMS WITH YOUR MEDICATIONS? NO . WHEN DID YOU LAST EAT? 04-26-16 2200 . WHEN DID YOU LAST DRINK? 04-27-16 0500 . WHAT DID YOU LAST DRINK? WATER . NAME OF PERSON DRIVING YOU HOME? PRADEEP WARD . DO YOU HAVE ANY OTHER QUESTIONS OR CONCERNS NO . REVIEWED BY: PROVIDER: ELVIA HARRIS MD . VITAL SIGNS WT 194 LBS, HT 68 IN, BMI 29.49 INDEX, BP 111/67 MM HG, HR 88 /MIN, RR 16 /MIN, TEMP 96.1 F, OXYGEN SAT % 98, NA INITIALS TL 1053, REVIEWED BY: CM. EXAMINATION : PATIENT IS ALERT O X 3 AND COOPERATIVE. TENDERNESS IN THE LOWER BACK AND PARASPINAL MUSCLE GROUP. TENDERNESS OVER THE FACET JOINTS OF THE LOWER BACK. MRI DONE ON 04/02/15 SHOWS CYSTIC CHANGES IN THE ADNEXA. ASSESSMENTS SPONDYLOSIS WITHOUT MYELOPATHY OR RADICULOPATHY, LUMBAR REGION - M47.816 (PRIMARY) SPONDYLOSIS WITHOUT MYELOPATHY OR RADICULOPATHY, LUMBOSACRAL REGION - M47.817 TREATMENT SPONDYLOSIS WITHOUT MYELOPATHY OR RADICULOPATHY, LUMBAR REGION NOTES: WE DISCUSSED SEVERAL ISSUES WITH MRS. HURLEY'S PAIN MANAGEMENT CASE. AT THIS TIME THE PATIENT WILL CONTINUE WITH THE SAME MEDICATION REGIME BEFORE. PATIENT WAS SEEN TODAY ORIGINALLY FOR AN INJECTION BUT THE PATIENT DID NOT COMPLAIN OF ANY LEG PAIN AT THIS TIME. AFTER VIEWING THE PATIENT SHE WOULD BENEFIT FROM TRIGGER POINT INJECTIONS DUE TO THE SPASTICITY OR A RADIOFREQUENCY. WE DISCUSSED DOING TWO DIAGNOSTIC TESTS PRIOR TO THE RADIOFREQUENCY AND THE PATIENT REPORTS UNDERSTANDING. WE DISCUSSED THE RISKS, BENEFITS, AND ALTERNATIVES OF THE INJECTION AND THE PATIENT WOULD LIKE TO PROCEED WITH THE LUMBAR FACET DIAGNOSTIC TEST AT THIS TIME. INSTRUCTIONS WERE GIVEN, QUESTIONS WERE ANSWERED, PATIENT REPORTS UNDERSTANDING AND AGREES WITH THE PLAN. I, RELL FAGAN, DOCUMENTED THE ABOVE INFORMATION ACTING A SCRIBE FOR DR. HARRIS. I HAVE REVIEWED THE ABOVE DOCUMENT, WRITTEN BY RELL LAWSONIBEj AND I VERIFY THAT IT IS ACCURATE. PROCEDURE CODES FA211 ESTABILISHED PATIENT [facility] FACILITY CHARGE G8427 DOC MEDS VERIFIED W/PT OR RE G8730 PAIN ASSESS POS TOOL F/U PLAN DOC DISPOSITION & COMMUNICATION FOLLOW UP LFBD AFTER APPROVAL ELECTRONICALLY SIGNED BY ELVIA HARRIS MD ON 05/04/2016 AT 06:31 AM EST DISCLAIMER : THIS IS A VISIT SUMMARY EXTRACTED FROM THE [employer] CHART. IT IS NOT A COPY OF THE [employer] PROGRESS NOTE. DARCYD
== END ==
LOC: M PAIN 10:50
PROVIDERS: ATTEND Anesthesiology
DX: Z09 Encounter for follow-up examination after completed treatment for conditions other than malignant neoplasm (principal); G89.29 Other chronic pain; M47.816 Spondylosis without myelopathy or radiculopathy, lumbar region; M47.817 Spondylosis without myelopathy or radiculopathy, lumbosacral region; M79.7 Fibromyalgia; M41.9 Scoliosis, unspecified; M19.90 Unspecified osteoarthritis, unspecified site; D56.9 Thalassemia, unspecified; I51.9 Heart disease, unspecified; G25.81 Restless legs syndrome; J44.9 Chronic obstructive pulmonary disease, unspecified; F90.9 Attention-deficit hyperactivity disorder, unspecified type; F41.9 Anxiety disorder, unspecified; F32.9 Major depressive disorder, single episode, unspecified; Z85.3 Personal history of malignant neoplasm of breast; Z85.41 Personal history of malignant neoplasm of cervix uteri; Z88.8 Allergy status to other drugs, medicaments and biological substances; Z79.82 Long term (current) use of aspirin; Z79.1 Long term (current) use of non-steroidal anti-inflammatories (NSAID); Z79.810 Long term (current) use of selective estrogen receptor modulators (SERMs); Z79.891 Long term (current) use of opiate analgesic; Z79.899 Other long term (current) drug therapy

== ENCOUNTER → 2016-06-08 | Outpatient (CLI) | payer OTHER, MEDICAID ==
[~2016-06-08] MED LIST changes: +BUPIVACAINE HCL 0.25% 30 ML VIAL As Ordered ONE; +ISOVUE-M 300 61% 15ML VIAL (Q9967) As Ordered ONE; +LIDOCAINE 1% SDV INJ 30 ML VIAL As Ordered ONE
--- NOTE | 2016-06-08 11:17 | REP ---
FLUOROSCOPIC GUIDANCE FOR FACET BLOCK: 06/08/2016. Clinical history: Back pain. Findings: Two views for c-arm fluoroscopy for right and left facet blocks lumbar spine were provided. There are needles overlying the L3-4, L4-5 and L5-S1 facets on both sides with contrast adjacent to the needle tips. Fluoroscopy time: 50.5 seconds. Signed by Charlie Moreau MD 06/08/2016 01:45 P
--- NOTE | 2016-06-20 00:05 | ECWPNPC ---
PATIENT NAME: JEANNE HURLEY : 1980 GENDER: FEMALE VISIT DATE: 06/08/2016 DISCHARGE DATE: 06/08/16 1050 VISIT LOCKED DATE TIME: PHYSICIAN: ELVIA HARRIS RESOURCE: ELVIA HARRIS REASON FOR APPOINTMENT 1. LFBD HISTORY OF PRESENT ILLNESS HISTORY OF PRESENT ILLNESS: PAIN THE PATIENT DESCRIBES THE PAIN... FALL RISK SCREENING: SCREENING :ONE FALL WITH INJURY IN THE PAST YEAR CURRENT MEDICATIONS TAKING XANAX 0.5 MG TABLET 1 TABLET ORALLY BID, NOTES: 06/07/16@429 TAKING PROAIR HFA 108 (90 BASE) MCG/ACT AEROSOL SOLUTION 2 PUFFS NEEDED INHALATION QID PRN, NOTES: 06/07/16@399 TAKING SYMBICORT 80-4.5 MCG/ACT AEROSOL 2 PUFFS INHALATION TWICE A DAY, NOTES: 06/07/16 TAKING ASPIR-81 81 MG TABLET DELAYED RELEASE 1 TABLET ORALLY ONCE A DAY, NOTES: 06/07/16 TAKING FERROUS SULFATE 325 (65 FE) MG TABLET 1 TABLET ORALLY ONCE A DAY, NOTES: TAKING IBUPROFEN 800 MG TABLET 1 TABLET ORALLY THREE TIMES A DAY, NOTES: 06/07/16 TAKING PREVACID 30 MG CAPSULE DELAYED RELEASE 1 CAPSULE ORALLY BID, NOTES: 06/07/16 TAKING REQUIP 3 MG TABLET 1 TABLET 1 TO 3 HOURS BEFORE BEDTIME ORALLY BEFORE BEDTIME, NOTES: 06/07/16@2129 TAKING IMITREX 100 MG TABLET 1 TABLET NEEDED ONE TIME ORALLY ONCE A DAY, NOTES: 2 WEEKS AGO TAKING SYSTANE ULTRA 0.4-0.3 % SOLUTION 1 DROP INTO AFFECTED EYE NEEDED OPHTHALMIC 24 TIME(S) A DAY, NOTES: NONE SINCE SEPTEMBER TAKING TAMOXIFEN CITRATE 20 MG TABLET 1 TABLET ORALLY ONCE A DAY, NOTES: 06/07/16 TAKING EFFEXOR XR 150 MG CAPSULE EXTENDED RELEASE 24 HOUR 1 CAPSULE WITH FOOD ORALLY ONCE A DAY, NOTES: 06/07/16 TAKING WOMENS DAILY FORMULA TABLET 1 TAB(S) ORALLY DAILY, NOTES: 06/07/16 TAKING KETOTIFEN FUMARATE 0.025 % SOLUTION 1 DROP OPHTHALMIC BID, NOTES: NONE SINCE SEPTEMBER TAKING BONIVA 150 MG TABLET ORALLY MONTHLY, NOTES: 2 MONTHS AGO TAKING SINGULAIR 10 MG TABLET ORALLY ONCE DAILY, NOTES: 4/11/17@0430 TAKING VESICARE 10 MG TABLET 1 TABLET ORALLY ONCE DAILY, NOTES: 06/07/16@0430 TAKING VITAMIN D 2000 UNIT TABLET ORALLY ONCE DAILY, NOTES: 06/07/16@0 TAKING VENTOLIN HFA 18GM AEROSOL SOLUTION 2 PUFFS NEEDED INHALATION Q6HPRN, NOTES: 06/07/16@0 TAKING HYDROXYZINE HCL 50 MG TABLET ORALLY Q6HPRN, NOTES: 06/07/16@429 TAKING ALBUTEROL SULFATE (2.5 MG/3ML) 0.083% NEBULIZATION SOLUTION INHALATION Q6HPRN, NOTES: FEW WEEKS TAKING EFFEXOR XR 75 MG CAPSULE EXTENDED RELEASE 24 HOUR 1 CAPSULE WITH FOOD ORALLY ONCE A DAY, NOTES: 06/07/16@0430 TAKING TOPAMAX 50 MG TABLET 1 1/2 TABLET ORALLY BEFORE BEDTIME, NOTES: 06/07/16@2130 TAKING LYRICA 200 MG CAPSULE 1 CAPSULE ORALLY TWICE A DAY MDD2, NOTES: 1 WEEK AGO TAKING NORCO 5-325 MG TABLET 1 TABLET NEEDED ORALLY EVERY 8H PRN MDD2, NOTES: HASNT TAKEN MEDICATION LIST REVIEWED AND RECONCILED WITH THE PATIENT PAST MEDICAL HISTORY FIBROMYALGIA SCOLIOSIS ARTHRITIS DEGENERATIVE DISC DISEASE ANEMIA THALSEMIA CARPAL TUNNEL ADHD ANXIETY DEPRESSION INSOMNIA OVERACTIVE BLADDER BREAST CA CERVICAL CA CARDIAC DISEASE RESTLESS LEG COPD ASTHMA ALLERGIES WELLBUTRIN: HIVES: ALLERGY CARVEDILOL: CONFUSION: ALLERGY SOCIAL HISTORY GENERAL: TOBACCO USE ARE YOU A:CURRENT SMOKER PATIENT COUNSELED ON THE DANGERS OF TOBACCO USE AND URGED TO QUIT:06/08/2016 ARE YOU INTERESTED IN QUITTING?READY TO QUIT COUNSELED THE PATIENT ON TOBACCO USE, CESSATION [id number]/12/2017 PAIN CLINIC PFS, CLERGY, PUBLIC HEALTH REFERRALS CLERGY REFERRAL NEEDED?NO WAS THE PROVIDER NOTIFIED OF ANY PERTINENT INFO?NO PFS REFERRAL NEEDED?NO PUBLIC HEALTH REFERRAL NEEDED?NO PATIENT: ____. REVIEW OF SYSTEMS CONSTITUTIONAL: ANY CHANGE IN YOUR MEDICAL CONDITION? NO . CHILLS NO . FEVER NO . INFECTION: DO YOU HAVE NEW INFECTIONS? NO . DO YOU HAVE HISTORY OF MRSA? NO . MUSCULOSKELETAL: ANY NEW PATTERNS OF PAIN OR NUMBNESS? NO . GASTROENTEROLOGY: ANY NEW CHANGE IN BOWEL CONTROL? NO . GENITOURINARY: ANY NEW CHANGE IN BLADDER CONTROL? NO . IS THERE A CHANCE YOU COULD BE ? NO . HEMATOLOGY/LYMPH: DO YOU TAKE ANY BLOOD THINNERS? (FOR EXAMPLE- COUMADIN, PLAVIX, AGGRENOX, PLATEL, PRADAXA, OR XARELTO) NO . WHEN WAS YOUR LAST DOSE? DATE: TIME: . NEUROLOGY: HAVE YOU FALLEN IN THE PAST 6 MONTHS? NO . ANY NEW EXTREMITY NUMBNESS OR WEAKNESS? NO . CARDIOLOGY: DO YOU HAVE A PACEMAKER OR DEFIBRILLATOR? NO . RESPIRATORY: HAVE YOU BEEN SICK IN THE PAST WEEK? NO . FEVER NO . FLU LIKE SYMPTOMS? NO . COUGH NO . INTEGUMENTARY: DO YOU HAVE ANY RASHES OR OPEN SORES? NO . ALLERGIC/IMMUNO: ARE YOU ALLERGIC TO SHELLFISH OR IV DYE? NO . ANY NEW ALLERGIES? NO . PSYCHIATRIC: DO YOU HAVE THOUGHTS OF HURTING YOURSELF OR SOMEONE ELSE? NO . ARE YOU ABUSED, NEGLECTED, OR IN AN UNSAFE ENVIRONMENT? NO . ENDOCRINOLOGY: ARE YOU DIABETIC? NO . OTHER: DO YOU NEED ANY PRESCRIPTIONS? NO . IF YES, PLEASE LIST: ____ . ANY NEW PROBLEMS WITH YOUR MEDICATIONS? NO . WHEN DID YOU LAST EAT? ____06/07/16 . WHEN DID YOU LAST DRINK? ____06/07/16 . WHAT DID YOU LAST DRINK? ____WATER . NAME OF PERSON DRIVING YOU HOME? ____CARMELOABBY JULIETTE . DO YOU HAVE ANY OTHER QUESTIONS OR CONCERNS NO . REVIEWED BY: PROVIDER: . VITAL SIGNS WT 207 LBS, HT 68 IN, BMI 31.47 INDEX, BP 124/87 MM HG, HR 69 /MIN, RR 16 /MIN, TEMP 97.4 F, OXYGEN SAT % 99%, NA INITIALS SC 08:58, REVIEWED BY: VD. ASSESSMENTS SPONDYLOSIS WITHOUT MYELOPATHY OR RADICULOPATHY, LUMBAR REGION - M47.816 (PRIMARY) SPONDYLOSIS WITHOUT MYELOPATHY OR RADICULOPATHY, LUMBOSACRAL REGION - M47.817 PROCEDURES PN LUMBAR FACET BLOCK DIAGNOSTIC PRE PROCEDURE DIAGNOSIS LUMBAR SPONDYLOSIS, LUMBOSACRAL SPONDYLOSIS POST PROCEDURE DIAGNOSIS LUMBAR SPONDYLOSIS, LUMBOSACRAL SPONDYLOSIS PROCEDURE BILATERAL L4-L5 AND BILATERAL L5-S1 FACET BLOCK DIAGNOSTIC NUMBER [address] ELVIA HARRIS PIPE SMOKER MACHINE OPERATOR NONE ANESTHESIA LOCAL PRE PROCEDURE NOTE THE PATIENT WITH HISTORY OF CHRONIC LOW BACK PAIN. I EVALUATED THE PATIENT AND REVIEWED THE CHART. I WENT OVER THE RISKS, ALTERNATIVES, AND BENEFITS ASSOCIATED WITH THIS PROCEDURE. THE PATIENT WOULD LIKE TO PROCEED AND GAVE CONSENT TO PERFORM THE PROCEDURE. AGREED WITH THE PATIENT WE ARE DOING THIS PROCEDURE TO DETERMINE IF THE PATIENT IS A CANDIDATE FOR A RADIOFREQUENCY ABLATION OF THE FACETS JOINTS. THE PATIENT DENIES UNEXPLAINABLE WEIGHT LOSS, FEVER, CHILLS, OR NEW CHANGES IN URINARY OR BOWEL CONTROL DESCRIPTION OF PROCEDURE THE PATIENT WAS BROUGHT TO THE PROCEDURE ROOM AND PLACED IN THE PRONE POSITION. THE LUMBOSACRAL AREA WAS CLEANED WITH CHLORAPREP SOLUTION AND DRAPED ASEPTICALLY. THE PROCEDURE WAS DONE UNDER STERILE CONDITIONS. I CHECKED LATERALITY AND THE LEVEL WHERE THE PROCEDURE WAS GOING TO BE PERFORMED WITH THE PATIENT AND THE SUPPORTING STAFF AT THE MOMENT OF THE TIME OUT IN THE PROCEDURE ROOM. UNDER FLUOROSCOPIC GUIDANCE, TARGETS WERE SELECTED AT THE INTERSECTION OF THE RIGHT AND LEFT TRANSVERSE PROCESS OF L4, L5 AND ALA OF S1 WITH ITS RESPECTIVE SUPERIOR ARTICULAR PROCESS. LIDOCAINE WAS USED TO NUMB THE SKIN AND THE SUBCUTANEOUS TISSUE BELOW IT. SPINAL NEEDLE, 22-GAUGE WAS ADVANCED UNDER FLUOROSCOPIC GUIDANCE AND FOLLOWING PATIENT FEEDBACK UNTIL THE TARGETS WERE REACHED. POSITION OF THE NEEDLES WAS VERIFIED WITH AP AND LATERAL VIEWS. AFTER PROPER POSITION OF THE NEEDLES WAS ACHIEVED, ISOVUE-M DYE 30% 0.1 ML WAS INJECTED AT EACH SITE SHOWING ADEQUATE SPREAD OF THE DYE. THEN A SOLUTION OF 0.4 ML OF BUPIVACAINE 0.25% WAS INJECTED AT EACH SITE. THERE WAS NO EVIDENCE OF BLOOD, PARESTHESIA OR CEREBROSPINAL FLUID DURING THE PROCEDURE. THE PATIENT WAS SENT TO THE RECOVERY ROOM. THE PATIENT WAS MOVING THE EXTREMITIES AND DOING WELL. THERE WAS NO COMPLICATION DURING THE PROCEDURE. FLUOROSCOPY TIME WAS 50 SECONDS POST PROCEDURE NOTE THE PATIENT WILL DOCUMENT HIS PAIN LEVEL AND RESPONSE TO THIS PROCEDURE EVERY 30 MINUTES. THE PATIENT WILL BE SEEN IN A FOLLOW UP IN THE NEXT FEW WEEKS. FURTHER DETERMINATION FOR HIS CASE WILL BE DONE AT THE NEXT VISIT. INSTRUCTIONS WERE GIVEN, QUESTIONS WERE ANSWERED, AND THE PATIENT EXPRESSED UNDERSTANDING AND AGREED WITH THE PLAN. INSTRUCTIONS WERE GIVEN, QUESTIONS WERE ANSWERED, PATIENT REPORTS UNDERSTANDING AND AGREES WITH THE PLAN. I, RELL FAGAN, DOCUMENTED THE ABOVE INFORMATION ACTING A SCRIBE FOR DR. HARRIS. I HAVE REVIEWED THE ABOVE DOCUMENT, WRITTEN BY RELL CLAY AND I VERIFY THAT IT IS ACCURATE DIAGNOSTIC IMAGING [facility] FACET BLOCK (PAIN)[id number] PROCEDURE CODES 74964 INJ PARAVERT F JNT L/S 1 LEV 45435 INJ PARAVERT F JNT L/S 2 LEV 6045F RADXPS IN END [id number] PXD DISPOSITION & COMMUNICATION FOLLOW UP 3 WEEKS ELECTRONICALLY SIGNED BY ELVIA HARRIS MD ON 06/19/2016 AT 04:49 PM EDT DISCLAIMER : THIS IS A VISIT SUMMARY EXTRACTED FROM THE [employer] CHART. IT IS NOT A COPY OF THE [employer] PROGRESS NOTE. MTDD
== END ==
LOC: M PAIN 08:40
PROVIDERS: ATTEND Anesthesiology
DX: G89.29 Other chronic pain (principal); M47.816 Spondylosis without myelopathy or radiculopathy, lumbar region; M47.817 Spondylosis without myelopathy or radiculopathy, lumbosacral region; M79.7 Fibromyalgia; D64.9 Anemia, unspecified; F41.9 Anxiety disorder, unspecified; F32.9 Major depressive disorder, single episode, unspecified; N32.81 Overactive bladder; G47.00 Insomnia, unspecified; G25.81 Restless legs syndrome; J44.9 Chronic obstructive pulmonary disease, unspecified; M19.90 Unspecified osteoarthritis, unspecified site; M41.9 Scoliosis, unspecified; Z85.3 Personal history of malignant neoplasm of breast; Z85.41 Personal history of malignant neoplasm of cervix uteri; Z79.51 Long term (current) use of inhaled steroids; Z79.1 Long term (current) use of non-steroidal anti-inflammatories (NSAID); Z79.82 Long term (current) use of aspirin; Z79.891 Long term (current) use of opiate analgesic; Z79.899 Other long term (current) drug therapy; Z88.8 Allergy status to other drugs, medicaments and biological substances

== ENCOUNTER → 2016-06-29 | Outpatient (CLI) | payer OTHER, MEDICAID ==
[~2016-06-29] MED LIST changes: -BUPIVACAINE HCL 0.25% 30 ML VIAL As Ordered ONE; -ISOVUE-M 300 61% 15ML VIAL (Q9967) As Ordered ONE; -LIDOCAINE 1% SDV INJ 30 ML VIAL As Ordered ONE
--- NOTE | 2016-07-08 23:58 | ECWPNPC ---
PATIENT NAME: JEANNE HURLEY : 1980 GENDER: FEMALE VISIT DATE: 06/29/2016 DISCHARGE DATE: 06/29/16 1117 VISIT LOCKED DATE TIME: PHYSICIAN: YENIFER COLIN RESOURCE: YENIFER COLIN REASON FOR APPOINTMENT 1. POST FACET HISTORY OF PRESENT ILLNESS HISTORY OF PRESENT ILLNESS: HERE FOR POST PROCEDURE F/U.HAD DIAGNOSTIC L4/5-L5/S1 FACET BLOCK ON 06-08-16.FORGOT PAIN DIARY.REPORTS SIGNIFICANT REDUCTION IN PAIN POST PROCEDURE THAT CONTINUED UNTIL FEW DAYS AGO.RATING PAIN VAS 5/10.PAIN IS DESCRIBED CONSTANT ACHING AND BURNING PAIN. PAIN THE PATIENT DESCRIBES THE PAIN... FALL RISK SCREENING: SCREENING :NO FALLS IN THE PAST YEAR CURRENT MEDICATIONS TAKING XANAX 0.5 MG TABLET 1 TABLET ORALLY BID TAKING PROAIR HFA 108 (90 BASE) MCG/ACT AEROSOL SOLUTION 2 PUFFS NEEDED INHALATION QID PRN TAKING SYMBICORT 80-4.5 MCG/ACT AEROSOL 2 PUFFS INHALATION TWICE A DAY TAKING ASPIR-81 81 MG TABLET DELAYED RELEASE 1 TABLET ORALLY ONCE A DAY TAKING FERROUS SULFATE 325 (65 FE) MG TABLET 1 TABLET ORALLY ONCE A DAY TAKING IBUPROFEN 800 MG TABLET 1 TABLET ORALLY THREE TIMES A DAY TAKING PREVACID 30 MG CAPSULE DELAYED RELEASE 1 CAPSULE ORALLY BID TAKING REQUIP 3 MG TABLET 1 TABLET 1 TO 3 HOURS BEFORE BEDTIME ORALLY BEFORE BEDTIME TAKING IMITREX 100 MG TABLET 1 TABLET NEEDED ONE TIME ORALLY ONCE A DAY TAKING SYSTANE ULTRA 0.4-0.3 % SOLUTION 1 DROP INTO AFFECTED EYE NEEDED OPHTHALMIC 24 TIME(S) A DAY, NOTES: NONE SINCE SEPTEMBER TAKING TAMOXIFEN CITRATE 20 MG TABLET 1 TABLET ORALLY ONCE A DAY TAKING EFFEXOR XR 150 MG CAPSULE EXTENDED RELEASE 24 HOUR 1 CAPSULE WITH FOOD ORALLY ONCE A DAY TAKING WOMENS DAILY FORMULA TABLET 1 TAB(S) ORALLY DAILY TAKING KETOTIFEN FUMARATE 0.025 % SOLUTION 1 DROP OPHTHALMIC BID, NOTES: NONE SINCE SEPTEMBER TAKING BONIVA 150 MG TABLET ORALLY MONTHLY TAKING SINGULAIR 10 MG TABLET ORALLY ONCE DAILY TAKING VESICARE 10 MG TABLET 1 TABLET ORALLY ONCE DAILY TAKING VITAMIN D 2000 UNIT TABLET ORALLY ONCE DAILY TAKING VENTOLIN HFA 18GM AEROSOL SOLUTION 2 PUFFS NEEDED INHALATION Q6HPRN TAKING HYDROXYZINE HCL 50 MG TABLET ORALLY Q6HPRN TAKING ALBUTEROL SULFATE (2.5 MG/3ML) 0.083% NEBULIZATION SOLUTION INHALATION Q6HPRN, NOTES: FEW WEEKS TAKING EFFEXOR XR 75 MG CAPSULE EXTENDED RELEASE 24 HOUR 1 CAPSULE WITH FOOD ORALLY ONCE A DAY TAKING TOPAMAX 50 MG TABLET 1 1/2 TABLET ORALLY BEFORE BEDTIME TAKING NORCO 5-325 MG TABLET 1 TABLET NEEDED ORALLY EVERY 8H PRN MDD2, NOTES: HASNT TAKEN TAKING LYRICA 200 MG CAPSULE 1 CAPSULE ORALLY TWICE A DAY MDD2 MEDICATION LIST REVIEWED AND RECONCILED WITH THE PATIENT PAST MEDICAL HISTORY FIBROMYALGIA SCOLIOSIS ARTHRITIS DEGENERATIVE DISC DISEASE ANEMIA THALSEMIA CARPAL TUNNEL ADHD ANXIETY DEPRESSION INSOMNIA OVERACTIVE BLADDER BREAST CA CERVICAL CA CARDIAC DISEASE RESTLESS LEG COPD ASTHMA ALLERGIES WELLBUTRIN: HIVES: ALLERGY CARVEDILOL: CONFUSION: ALLERGY SURGICAL HISTORY HYSTERECTOMY APPENDECTOMY TUMOR REMOVED LEFT ARM LEFT HIP CHOLECYSTECTOMY BREAST BIOPSY (4) LUMPECTOMY RIGHT BREAST INFUSAPORT REMOVAL OF INFUSAPORT TUBAL LIGATION LEEP CADIAC CATHERIZATION SOCIAL HISTORY GENERAL: TOBACCO USE ARE YOU A:CURRENT SMOKER PATIENT COUNSELED ON THE DANGERS OF TOBACCO USE AND URGED TO QUIT:06/08/2016 ARE YOU INTERESTED IN QUITTING?READY TO QUIT COUNSELED THE PATIENT ON TOBACCO USE, CESSATION REOSODUC70/12/2017 CAFFEINE CAFFEINE USE?YES HOW OFTEN AND HOW MUCH? 2 PEPSI PER DAY LEARNING BARRIERS / SPECIAL NEEDS READINESS TO LEARN?YES PAIN CLINIC PFS, CLERGY, PUBLIC HEALTH REFERRALS PFS REFERRAL NEEDED?NO CLERGY REFERRAL NEEDED?NO PUBLIC HEALTH REFERRAL NEEDED?NO WAS THE PROVIDER NOTIFIED OF ANY PERTINENT INFO?YES REVIEWED BY: KEVIN. PATIENT: ____. ADVANCED DIRECTIVES HEALTH CARE PROXY?[facility] [phone] DO YOU HAVE A COPY WITH YOU?NO REVIEW OF SYSTEMS CONSTITUTIONAL: ANY CHANGE IN YOUR MEDICAL CONDITION? NO . CHILLS NO . FEVER NO . INFECTION: DO YOU HAVE NEW INFECTIONS? NO . DO YOU HAVE HISTORY OF MRSA? NO . MUSCULOSKELETAL: ANY NEW PATTERNS OF PAIN OR NUMBNESS? NO . GASTROENTEROLOGY: ANY NEW CHANGE IN BOWEL CONTROL? NO . GENITOURINARY: ANY NEW CHANGE IN BLADDER CONTROL? NO . IS THERE A CHANCE YOU COULD BE ? NO . HEMATOLOGY/LYMPH: DO YOU TAKE ANY BLOOD THINNERS? (FOR EXAMPLE- COUMADIN, PLAVIX, AGGRENOX, PLATEL, PRADAXA, OR XARELTO) NO . WHEN WAS YOUR LAST DOSE? DATE: TIME: . NEUROLOGY: HAVE YOU FALLEN IN THE PAST 6 MONTHS? YES, PT STATES THAT SHE WAS HOME AND LEGS GAVE OUT, FELL, NO REPORT TO ED, NO INJURY . ANY NEW EXTREMITY NUMBNESS OR WEAKNESS? NO . CARDIOLOGY: DO YOU HAVE A PACEMAKER OR DEFIBRILLATOR? NO . RESPIRATORY: HAVE YOU BEEN SICK IN THE PAST WEEK? NO . FEVER NO . FLU LIKE SYMPTOMS? NO . COUGH NO . INTEGUMENTARY: DO YOU HAVE ANY RASHES OR OPEN SORES? NO . ALLERGIC/IMMUNO: ARE YOU ALLERGIC TO SHELLFISH OR IV DYE? NO . ANY NEW ALLERGIES? NO . PSYCHIATRIC: DO YOU HAVE THOUGHTS OF HURTING YOURSELF OR SOMEONE ELSE? NO . ARE YOU ABUSED, NEGLECTED, OR IN AN UNSAFE ENVIRONMENT? NO . ENDOCRINOLOGY: ARE YOU DIABETIC? NO . OTHER: DO YOU NEED ANY PRESCRIPTIONS? NO . IF YES, PLEASE LIST: ____ . ANY NEW PROBLEMS WITH YOUR MEDICATIONS? NO . WHEN DID YOU LAST EAT? ____ . WHEN DID YOU LAST DRINK? ____ . WHAT DID YOU LAST DRINK? ____ . NAME OF PERSON DRIVING YOU HOME? ____ . DO YOU HAVE ANY OTHER QUESTIONS OR CONCERNS PT STATES THAT SHE IS A CURRENT SMOKER, REFUSING ANY SMOKING CESSATION COUSELING AT THIS TIME, PT STATES THAT SHE HAD GREAT SUCCESS FROM DIAGNOSTIC BLOCK, LASTED ALMOST 3 WEEKS, FIRST 3 DAYS SHE HAD INCREASED PAIN. . REVIEWED BY: PROVIDER: YENIFER PLASCENCIA . VITAL SIGNS WT 205 LBS, HT 68 IN, BMI 31.17 INDEX, BP 126/67 MM HG, HR 75 /MIN, RR 16 /MIN, TEMP 96.7 F, OXYGEN SAT % 99%, SAFE IN ENV? (Y/N) Y, NA INITIALS AL 10:17, REVIEWED BY: KEVIN. EXAMINATION LUMBAR SPINE/LOWER BACK: PALPATION:SI JOINT TENDERNESS BILATERALLY.. MOTOR SYSTEM:5/5 BLE. GENERAL EXAMINATION: LUNGS:LUNG SOUNDS ARE CLEAR. HEART:HEART RATE REGULAR. 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 IT IS NOT A COPY OF THE [employer] PROGRESS NOTE. [facility]I
== END ==
LOC: M PAIN 10:00
PROVIDERS: ATTEND Nurse Practitioner Family
DX: G89.29 Other chronic pain (principal); M47.816 Spondylosis without myelopathy or radiculopathy, lumbar region; M47.817 Spondylosis without myelopathy or radiculopathy, lumbosacral region; M79.7 Fibromyalgia; F41.9 Anxiety disorder, unspecified; F32.9 Major depressive disorder, single episode, unspecified; G47.00 Insomnia, unspecified; G25.81 Restless legs syndrome; J44.9 Chronic obstructive pulmonary disease, unspecified; M19.90 Unspecified osteoarthritis, unspecified site; M41.9 Scoliosis, unspecified; D56.9 Thalassemia, unspecified; G56.00 Carpal tunnel syndrome, unspecified upper limb; F90.9 Attention-deficit hyperactivity disorder, unspecified type; N32.81 Overactive bladder; Z85.3 Personal history of malignant neoplasm of breast; Z85.41 Personal history of malignant neoplasm of cervix uteri; F17.210 Nicotine dependence, cigarettes, uncomplicated; Z88.8 Allergy status to other drugs, medicaments and biological substances; Z79.82 Long term (current) use of aspirin; Z79.1 Long term (current) use of non-steroidal anti-inflammatories (NSAID); Z79.891 Long term (current) use of opiate analgesic; Z79.51 Long term (current) use of inhaled steroids; Z79.899 Other long term (current) drug therapy